=== PATIENT | female | born 1965 | race Caucasian/White ===

== ENCOUNTER 2018-07-01 15:04 | Emergency (ER) | payer SELFPAY ==
[~2018-07-01] VITALS: Ht 160 cm; Wt 70.9 kg
[2018-07-01 15:13] VITALS: BP 143/83; PULSE 91; RESP 18; Ht 160 cm; Wt 70.9 kg
== END 2018-07-01 17:54 | disposition left against medical advice (07) ==
LOC: FTE 15:04
DX: Z53.21 Procedure and treatment not carried out due to patient leaving prior to being seen by health care provider (principal)